=== PATIENT | female | born 1930 | race Caucasian/White ===

== ENCOUNTER 2018-04-02 12:50 | Observation (INO) | payer MEDICARE ==
[~2018-04-02] VITALS: Ht 162.6 cm; Wt 46.4 kg
--- OUTSIDE RECORDS SUMMARY | ~2018-04-02 | XMS | Clinical Summary ---
Demographics + + + | Address | [address] | | | [place] [address] | + + + | Home Phone | | + + + | Preferred Language | Unknown | + + + | Marital Status | | + + + | Baptist Affiliation | Unknown | + + + | Race | Unknown | + + + | Ethnic Group | Unknown | + + + Author + + + | Author | [facility] | | | and [place] | + + + | Organization | [facility] | | | and [place] | + + + | Address | Unknown | + + + | Phone | Unavailable | + + + Support + + +---------+ + | Name | Relationship | Address | Phone | + + +---------+ + | Olinda Morrison | ECON | Unknown | | + + +---------+ + Care Team Providers + +------+ + | Care Radio Assembler Name | Role | Phone | + +------+ + | Pcp, Prov Inactive | PP | | + +------+ + Allergies + + + + + + | Active Allergy | Reactions | Severity | Noted | Comments | | | | | Date | | + + + + + + | Celecoxib | | | 05/01/20 | | | | | | 11 | | + + + + + + | Lipitor | | | 02/09/20 | | | | | | 10 | | + + + + + + | Niacin | | | 02/09/20 | | | | | | 10 | | + + + + + + | Oxycodone | | | 04/17/20 | | | | | | 11 | | + + + + + + Current Medications + + +-------+---------+------+------+-------+ | Prescription | Sig. | Disp. | Refills | Star | End | Statu | | | | | | t | Date | s | | | | | | Date | | | + + +-------+---------+------+------+-------+ | Aspirin (ADULT | Take 81 mg by mouth | | | | | Activ | | ASPIRIN LOW | Daily. | | | 09/11 | | e | | STRENGTH) 81 MG TBDP | | | | 11 | | | + + +-------+---------+------+------+-------+ | cholecalciferol | Take 5,000 Units by | | | 07/0 | | Activ | | ([facility] VIT D 5000 | mouth Daily. | | | 1/20 | | e | | HIGH-POTENCY) 5000 | | | | 11 | | | | UNITS CAPS | | | | | | | + + +-------+---------+------+------+-------+ | docusate sodium | patient takes 1-2 | | | 09/ | | Activ | | ([facility] STOOL SOFTENER) | tablets daily, by | | | 2/20 | | e | | 100 mg capsule | mouth. | | | 12 | | | + + +-------+---------+------+------+-------+ | clobetasol | apply to scalp once | | | 08/2 | | Activ | | (TEMOVATE) 0.05 % | to twice daily for | | | 6/20 | | e | | external solution | psoriasis | | | 11 | | | + + +-------+---------+------+------+-------+ | lisinopril | Take 20 mg by mouth | | | 04/23 | | Activ | | (PRINIVIL, ZESTRIL) | Daily. | | | 10/12 | | e | | 20 mg tablet | | | | 12 | | | + + +-------+---------+------+------+-------+ Active Problems + + + | Problem | Noted Date | + + + | CORNS AND CALLUSES | 10/27/2011 | + + + | COMPRESSION FRACTURE, THORACIC VERTEBRA | 05/01/2011 | + + + | CONSTIPATION | 05/01/2011 | + + + | BACK PAIN, THORACIC REGION | 04/17/2011 | + + + | HYPERTENSION | 02/08/2010 | + + + | HYPERLIPIDEMIA | 02/08/2010 | + + + | SMOKER | 02/08/2010 | + + + | ARTHRITIS | 02/08/2010 | + + + | PSORIASIS | 02/08/2010 | + + + | FH DIABETES | | + + + | DIABETES, TYPE 2 | | + + + Social History + +-------+ +--------+------+ | Tobacco Use | Types | Packs/Day | Years | Date | | | | | Used | | + +-------+ +--------+------+ | Never Assessed | | | | | + +-------+ +--------+------+ + + + | Sex Assigned at | Date Recorded | | | | + + + | Not on file | | + + + Last Filed Vital Signs + + + + | Vital Sign | Reading | Time Taken | + + + + | Blood Pressure | 114/64 | 10/27/2011 0000 PST | + + + + | Pulse | - | - | + + + + | Temperature | - | - | + + + + | Respiratory Rate | - | - | + + + + | Oxygen Saturation | - | - | + + + + | Inhaled Oxygen | - | - | | Concentration | | | + + + + | Weight | 57.8 kg (127 lb 6.4 | 10/27/2011 0000 PST | | | oz) | | + + + + | Height | 160 cm (5' 3") | 08/29/2010 0000 PST | + + + + | Body Mass Index | 22.57 | 10/27/2011 0000 PST | + + + + Plan of Treatment + + + + + | Health Maintenance | Due Date | Last Done | Comments | + + + + + | Vaccine: | | | | | Dtap/Tdap/Td (1 - | 9 | | | | Tdap) | | | | + + + + + | Vaccine: | | | | | Pneumococcal 65+ | 5 | | | | Low/Medium Risk (1 | | | | | of 2 - PCV13) | | | | + + + + + | Vaccine: Influenza | | | | | (#1) | 8 | | | + + + + + Results Not on filefrom Last 3 Months Insurance + +--------+ +--------+ +---------+ | Payer | Benefi | Subscriber | Type | Phone | Address | | | t Plan | ID | | | | | | / | | | | | | | Group | | | | | + +--------+ +--------+ +---------+ | [employer] | PRE[place]E | [id number] | Medica | [phone] | | | R CARE | | re | [phone] | | | | | | | [place] | | | | | | | [place] [address] | | | | | + +--------+ +--------+ +---------+ + +--------+ +--------+ + + | Guarantor Name | Accoun | Relation to | Date | Phone | Billing Address | | | t Type | Patient | of | | | | | | | | | | + +--------+ +--------+ + + | NERY MORRISON | Person | Self [birth year] | Home: | [address] | | | al/Fam | | 1930 | [phone] | [place] [address] | | | [place] | | | [phone] | | + +--------+ +--------+ + +
--- OUTSIDE RECORDS SUMMARY | ~2018-04-02 | XMS | Clinical Summary ---
Demographics + + + | Address | [address] | | | [place] [address] | + + + | Home Phone | | + + + | Preferred Language | Unknown | + + + | Marital Status | | + + + | Buddhist Affiliation | Unknown | + + + | Race | Unknown | + + + | Ethnic Group | Unknown | + + + Author + + + | Author | [facility] | | | and [place] | + + + | Organization | [facility] | | | and [...] Team Providers + +------+ + | Care Legal Librarian Name | Role | Phone | + [...] +---------+ | [employer] | PREMIE | [id number] | Medica | [phone] | | [phone] | 1930 | [phone] | [place] [address] | | | [place] | | | [phone] | | + +--------+ +--------+ + +
--- OUTSIDE RECORDS SUMMARY | ~2018-04-02 | XMS | Clinical Summary ---
Demographics + + + | Address | [address] | | | [place] [address] | + + + | Home Phone | | + + + | Preferred Language | Unknown | + + + | Marital Status | | + + + | Restorationism Affiliation | Unknown | + + + | Race | Unknown | + + + | Ethnic Group | Unknown | + + + Author + + + | Author | [facility] | | | and [place] | + + + | Organization | [facility] | | | and [...] Team Providers + +------+ + | Care Catalyst Impregnator Name | Role | Phone | + [...] +---------+ | [employer] | PREMIE | [id number] | Medica | [phone] | | [...] | 1930 | [phone] | [place] [address] | | | [place] | | | [phone] | | + +--------+ +--------+ + +
--- OUTSIDE RECORDS SUMMARY | ~2018-04-02 | XMS ---
Demographics + + + | Address | [address] | | | [place] [address] | + + + | Preferred Language | Unknown | + + + | Marital Status | Unknown | + + + | Adventism Affiliation | Unknown | + + + | Race | Unknown | + + + | Ethnic Group | Unknown | + + + Author + + + | Author | [facility] | + + + | Organization | [facility] | + + + | Address | 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 | Unknown | Non Drug | December, | Unknown | | | | Allergy | | | + + + + +---------+ SOCIAL HISTORY No smoking Hx information available PLAN OF CARE + +---------+ | Activity | Details | + +---------+ +---+ | | +---+ + + + | Pending Test | Sedimentation Rate-Westergren | + + + | Pending Test | Comp. Metabolic Panel (14) | + + + | Pending Test | cbc | + + + | Pending Test | X ray : Chest 2 views | + + + | | 4 Weeks,Reason: | + + + VITAL SIGNS + + + + | Height | 63 in | 2016-12-24 | + + + + | Weight | 91.2 lbs | 2016-12-24 | + + + + | BMI | 16.15 kg/m2 | 2016-12-24 | + + + + | Heart Rate | 95 /min | 2016-12-24 | + + + + | Blood pressure systolic | 137 mm Hg | 2016-12-24 | + + + + | Blood pressure diastolic | 56 mm Hg | 2016-12-24 | + + + + MEDICATIONS + + + + +--------+ + +--------+ | Medicati | Instruct | Dosage | Frequenc | Start | End Date | Duration | Status | | on | ions | | y | Date | | | | + + + + +--------+ + +--------+ | Ibuprofe | Orally | 1 tablet | 6h | | | | Active | | n 200 MG | every 6 | as | | | | | | | | hrs | needed | | | | | | + + + + +--------+ + +--------+ RESULTS +------+--------+------+ + | Name | Result | Date | Reference Range | +------+--------+------+ + | TSH | | | | +------+--------+------+ + | TSH | | | | +------+--------+------+ + PROCEDURES + + + + + | Procedure | Date Ordered | Related Diagnosis | Body Site | + + + + + | PNEUMOCOCCAL VACC, | December 24, 2016 | | | | 13 VALENCIA IM | | | | + + + + + | INJECTION | December 24, 2016 | | | | INTRAMUSCULAR OR | | | | | SUBCUTANEOUS | | | | + + + + + | Est Level III | December 24, 2016 | | | | Intermediate | | | | + + + + + IMMUNIZATIONS + + + + + | Vaccine | Route | Administration Date | Status | + + + + + | Prevnar 13 | IM Intramuscular | December 24, 2016 | Administered | + + + + +"
[~2018-04-02 12:50] MED LIST: CEFPODOXIME PR200 MG PO; COLACE100 MG PO; KEFLEX500 MG PO; MAPAP500 M1 PO; NICOTINE PATCH1 EAC3 TD; NORCO 5-325 TA1 EACH PO; TRAMADOL HCL50 MG PO; ULTRAM50 MG PO; VITAMIN D35000 UNIT PO; WHEELCHAIR1 EACH MISC; [UNRECOGNIZED DRUG - OTHER] PO
--- NOTE | 2018-04-02 14:26 | NUR ---
EXECUTIVE KITCHEN MANAGER WAS CALLED IN PT FELL AND HIT HEAD. HEART RATE EXTREMELY LOW AND PT EXPECTED TO . I SPOKE WITH THE NURSE AND WAS TOLD THAT THIS COULD BE A LONG PROCESS. PT IS BEING MOVED TO MED/SURG. PTS SON IS WELL, NO CONCERNS AT THIS TIME. HE STATED THAT PT HAS BEEN SLOWLY DECLINING AND THATTHIS IS NOT EXPECTED. THERE IS NO SIKHISM TO NOTIFY AND THERE IS NO NOK TO NOTIFY EITHER. PT HAS A BROTHER IN [place] WHO WILL BE NOTIFIED BY PTS SON WHEN SHE EXPIRES. EXECUTIVE KITCHEN MANAGER SPOKE WITH PTS SON. THEY HAVE NO NEEDS FROM THE EXECUTIVE KITCHEN MANAGER AT THIS TIME. I SPOKE WITH BOTH ED AND MED/COMMUNITY LIAISONPREFORMS LAMINATOR TO LET THEM KNOW ABOUT PT'S ARRANGEMENTS.
--- NOTE | 2018-04-02 16:38 | NUR ---
PATIENT ARRIVED TO ROOM 122 WITH SON AT BEDSIDE AT 1630. TRANSFERRED TO BED WITH 3PA. HOB ELEVATED 20 DEGREES. CLEAR LUNG SOUNDS. STRONG RADIUS AND PEDAL PULSES. HR 18 VIA MANUAL RADIAL PULSE. 6L 02 VIA NON REBREATHER. AGONAL BREATHS. DRY SKIN THROUGHOUT. SKIN TEARS/ABRASIONS TO LOWER EXTREMITIES. LACERATION TO LEFT EYE BROW. REPORTED THAT PATIENT FELL SEVERAL TIMES AT HOME TODAY. UNRESPONSIVE AT THIS TIME.
--- NOTE | 2018-04-02 18:00 | NUR ---
COMFORT MEASURES. NO VITAL SIGNS. NO IV FLUIDS. NO LAB DRAWS. NON REBREATHER MASK PLACED AT 6L/MIN. AGONAL BREATHING, WITH APNEIC PERIODS. NEEDS TO BE TURNED Q2HR. SCOPOLAMINE PATCH PLACED FOR NAUSEA. PLAN OF CARE DISCUSSED WITH SON, DEMONSTRATED UNDERSTANDING. SON LEFT FOR THE NIGHT AND WOULD LIKE TO BE CALLED IF THERE IS ANY CHANGE IN HER STATUS. MORPHINE, ATROPINE, AND ATIVAN AVAILABLE FOR PRN.
--- NOTE | 2018-04-02 18:15 | NUR ---
pt was floated on both sides with pillows and is resting comfortably in bed with call light in reach.
--- NOTE | 2018-04-02 19:00 | NUR ---
REPORT RECEIVED FROM DAYSWAYLONFT RN. PT ALERT AND ORIENTED. FRESH ICE WATER PROVIDED AND SCD'S AND HEEL PROTECTORS APPLIED. ASSESSMENT COMPLETED. [facility] DS CDI TO RIGHT HIP AND ICE PROVIDED. CALL LIGHT IN REACH. NO FURTHER CONCERNS OR REQUESTS VOICED.
--- NOTE | 2018-04-02 19:00 | NUR ---
PT RESTING IN BED, EYES CLOSED. PT UNRESPONSIVE TO VOICE OR TOUCH BUT APPEARS COMFORTABLE WITH NO FACIAL GRIMMACE. NO ORAL SECRETIONS VISABLE AND NO ADVENTITIOUS LUNG SOUNDS AUDABLE. PT REMAINS ON COMFORT MESASURES PER REPORT FROM DAYSHIFT RN AT THIS TIME. PT REMAINS ON 6LITERS PER NONREBREATHER AND REMAINS NEAR NURSING STATION.
--- NOTE | 2018-04-02 20:33 | NUR ---
PT REPOSITIONED ONTO LEFT LATERAL SIDE. PT REMAINS ON 6LITERS PER NONREBREATHER AND IS UNRESPONSIVE TO VOICE/TOUCH. ATTENDS REMAINS DRY. WARM BLANKET PROVIDED. PT'S DOOR REAMINS OPEN AND PT IS NEAR [facility].
--- NOTE | 2018-04-02 22:07 | NUR ---
PT RESTING IN BED, HAS SHORT PERIODS OF APNEA WITH RR 12. 6 LITERS OF O2 PER NONREBREATHER REMAINS IN PLACE. NO FACIAL GRIMMACE NOTED AND AIRWAY REMAINS CLEAR WITH NO ADVENTITIOUS BREATH SOUNDS.PT APPEARS COMFORTABLE AND REMAINS NEAR NURSING STATION WITH DOOR OPEN.
--- NOTE | 2018-04-02 22:26 | NUR ---
ENTERED ROOM WITH PT'S PRIMARY RN TO HELP REPOSITION PT. PT WAS FOUND TO BE APNEIC AND NO APICAL PULSE IS HEARD. PRIMARY RN NOTIFIED DR OLIVAS.
--- NOTE | 2018-04-02 22:26 | NUR ---
IN TO REPOSITION PT, PT FOUND TO BE APNIC WITH NO PULSE. NOTIFIED. HOUSE SUPERVISER AND TRAVEL TRAILER COMPONENTS ASSEMBLERLG TRAORE ALSO NOTIFIED. DR OLIVAS STATES HE IS ON HIS WAY TO SEE PATIENT AND LG TO NOTIFY NEXT OF KIN.
--- NOTE | 2018-04-02 22:33 | NUR ---
IN TO SEE PATIENT.
--- NOTE | 2018-04-02 22:45 | NUR ---
NURSING SUPERVISER, CORA LARA, NOTIFIES CORONOR OF PT'S . PER JANE PLASTICS AND COMPOSITES INSPECTOR GIVES OAKY FOR LINES/TUBES TO BE REMOVED SO IV TO RIGHT AND LEFT FA'S REMOVED BY CORA GANN AND THIS RN RESPECTIVELY.
--- NOTE | 2018-04-03 00:05 | NUR ---
[facility] ARRIVES TO TRANSFER PATIENTS BODY TO HOME ALONG WITH PATIENTS BELONGINGS WHICH ONLY CONSISTS OF BLUE JERRY PANTS AND UNDERWEAR.
--- NOTE | 2018-04-03 09:15 | NUR ---
04/02/18 1353 - ATIVAN 1MG IV GIVEN. 1 MG WASTED AND VERIFIED BY ALIE BERGERON RN.
== END 2018-04-02 22:26 ==
LOC: ED 12:50 → MS 12:51
PROVIDERS: ADMIT Student in an Organized Health Care Education/Training Program
DX: I46.9 Cardiac arrest, cause unspecified (principal); Z51.5 Encounter for palliative care; E11.9 Type 2 diabetes mellitus without complications; I10 Essential (primary) hypertension; I44.2 Atrioventricular block, complete; F17.200 Nicotine dependence, unspecified, uncomplicated; M19.90 Unspecified osteoarthritis, unspecified site; R06.3 Periodic breathing; R00.1 Bradycardia, unspecified; M48.50XD Collapsed vertebra, not elsewhere classified, site unspecified, subsequent encounter for fracture with routine healing; Z88.2 Allergy status to sulfonamides; Z88.8 Allergy status to other drugs, medicaments and biological substances; Z79.891 Long term (current) use of opiate analgesic
CPT/HCPCS: 80053; 84484; 85025; 96374; 96375; 99285; J0461; J2060; J2270; J7030